=== PATIENT | male | born 1965 | race African-American/Black ===

== ENCOUNTER 2021-04-16 09:56 | Outpatient (CLI) | payer OTHER | END 2021-04-16 09:57 | disposition home or self-care (01) | LOC: BICRAD 09:56 | PROVIDERS: ATTEND Internal Medicine | DX: Z02.71 Encounter for disability determination (principal); Z96.641 Presence of right artificial hip joint; Z96.642 Presence of left artificial hip joint | CPT/HCPCS: 73523 ==